=== PATIENT | female | born 1935 | race Two or more races ===

== ENCOUNTER → 2017-03-10 | Outpatient (CLI) | payer OTHER ==
--- NOTE | 2017-03-10 11:40 | CARD ---
APPROVED REPORT EXAM: Two-dimensional and M-mode echocardiogram with Doppler and color Doppler. Other Information Quality : Average Rhythm : Pacemaker INDICATION Murmur 2D DIMENSIONS RVDd2.1 (2.9-3.5cm)Left Atrium(2D)3.4 (1.6-4.0cm) IVSd1.1 (0.7-1.1cm)Aortic Root(2D)3.0 (2.0-3.7cm) LVDd4.8 (3.9-5.9cm)LVOT Diameter2.0 (1.8-2.4cm) PWd1.1 (0.7-1.1cm)LVDs3.5 (2.5-4.0cm) FS (%) 27.9 %SV57.7 ml LVEF(%)54.0 (>50%) Aortic Valve AoV Peak Coy.145.2cm/sAoV VTI27.8cm AO Peak GR.8.4mmHgLVOT Peak Coy.73.9cm/s LVOT VTI 15.49cmAO Mean GR.5mmHg ABHI (VMAX)1.07iq9IHX (VTI)1.83cm2 Mitral Valve MV E Xskfvcpw88.2cm/sMV DECEL LWIM526yc MV A Qbyjgmpu366.6cm/sMV E Mean Gr.1mmHg MV DXZ03fmR/A Ratio0.5 MV A Smmnqkcb872mbLKE (PHT)2.67cm2 TDI E/Lateral E'11.0E/Medial E'10.3 Pulmonary Valve PV Peak Vmmorbgz46.2cm/sPV Peak Grad.2mmHg RVOT VTI13.0cm Tricuspid Valve TR P. Tenlwwpo176lh/sRAP TULQALHH9yaNp TR Peak Gr.81jrSlTEYB97efEg LEFT VENTRICLE The left ventricle is normal size. There is normal left ventricular wall thickness. Left ventricle sy stolic function is normal. The Ejection Fraction is 50-55%. Abnormal septal motion consistent with pa cemaker activation. Tissue Doppler imaging reveals mild left ventricular diastolic dysfunction. Trans mitral Doppler flow pattern is Grade I-abnormal relaxation pattern. There is no ventricular septal de fect visualized. RIGHT VENTRICLE The right ventricle is normal size. The right ventricular systolic function is normal. There is a pac emaker lead seen in the right ventricle and atrium. ATRIA The left atrium size is normal. The right atrium size is normal. The interatrial septum is intact wit h no evidence for an atrial septal defect or patent foramen ovale as noted on 2-D or Doppler imaging. AORTIC VALVE The aortic valve is mildly sclerotic. The aortic valve is trileaflet. Doppler and Color Flow revealed trace aortic regurgitation. There is no significant aortic valvular stenosis. MITRAL VALVE Mitral annular calcification is mild. The mitral valve leaflets are calcified. There is no mitral camryn ve stenosis. Doppler and Color Flow revealed mild mitral regurgitation. TRICUSPID VALVE The tricuspid valve is normal in structure and function. Doppler and Color Flow revealed mild tricusp id regurgitation. The PA pressure was estimated at 23 mmHg. There is no tricuspid valve stenosis. PULMONIC VALVE The pulmonic valve is not well visualized. Doppler and Color Flow revealed mild pulmonic valvular reg urgitation. There is no pulmonic valvular stenosis. GREAT VESSELS The aortic root is normal in size. The ascending aorta is normal in size. The IVC was not visualized. PERICARDIAL EFFUSION There is no evidence of significant pericardial effusion. Critical Notification Critical Value: No <Conclusion> Left ventricle systolic function is normal. The Ejection Fraction is 50-55%. Abnormal septal motion consistent with pacemaker activation. Transmitral Doppler flow pattern is Grade I-abnormal relaxation pattern. There is a pacemaker lead seen in the right ventricle and atrium. Trace aortic regurgitation. Mild mitral regurgitation. Mild tricuspid regurgitation. The PA pressure was estimated at 23 mmHg. There is no evidence of significant pericardial effusion.
== END | disposition home or self-care (01) ==
LOC: ECHO 08:49
PROVIDERS: ATTEND Internal Medicine Cardiovascular Disease
DX: I08.1 Rheumatic disorders of both mitral and tricuspid valves (principal); R01.1 Cardiac murmur, unspecified; R06.00 Dyspnea, unspecified
CPT/HCPCS: 93306

== ENCOUNTER → 2017-04-13 | Outpatient (CLI) | payer OTHER ==
[~2017-04-13] VITALS: Ht 154.9 cm; Wt 56.2 kg
[~2017-04-13] MED LIST: BACITRACIN 50,000 UNIT in IV NORMAL SALINE 250ML 250 ML IRR ONE; DULO60CA6 PO; EPIPEN0.3 MG/0.3 IJ; GABA800T2 PO; HYDR-2758 PO; LEVO50TA5 PO; LIDOCAINE 2%/EPI 1:100,000 20 ML VIAL. IJ ONE; LIDOCAINE 2%/EPI 1:100,000 20 ML VIAL. ONE; MIDAZOLAM HCL/PF 2 MG/2 ML VIAL. IV ONE; MIDAZOLAM HCL/PF 2 MG/2 ML VIAL. ONE; NADO40TA PO; NO ANTICOAGULANT THERAPY. MC PRN; PROP20TA PO; TIZA4TAB PO; TRAM50TA PO; VANCOMYCIN 1 GM in IV DEXTROSE 5% 250 ML IV ONE; fentaNYL PF VIAL 100 MCG/2 ML VIAL IV ONE; fentaNYL PF VIAL 100 MCG/2 ML VIAL ONE
[2017-04-13 07:08] LABS: HEMATOCRIT 37.7 % (36.0-47.0); HEMOGLOBIN 12.5 g/dL (12.0-15.5); RED BLOOD COUNT 4.18 x10^6/uL (3.50-5.40); RED CELL DISTRIBUTION WIDTH 13.8 % (11.5-14.5); WHITE BLOOD COUNT 5.3 x10^3/uL (4.0-11.0)
[2017-04-13 07:20] LABS: INR 1.1 (0.8-1.1); PROTHROMBIN TIME PATIENT 13.3 SEC (11.7-14.0)
[2017-04-13 07:25] LABS: CALCIUM 9.3 mg/dL (8.5-10.1); CREATININE 0.6 mg/dL (0.6-1.0); GFR 95.7; POTASSIUM 4.3 mmol/L (3.5-5.1)
[2017-04-13 07:37] VITALS: BP 125/64
--- NOTE | 2017-04-13 08:39 | PDOC ---
MODERATE SEDATION ASSESSMENT RISKS/ALTERNATIVES Risks/Alternatives Risks and alternatives of this type of sedation and procedure discussed with: RISK/ALTERNATIVES: Patient H & P ON CHART H & P H & P on chart and reviewed for co-morbid conditions and appropriate labs. H&P ON CHART: Yes STATUS PREG STATUS ASSESSED: N/A MEDS/ALLERGIES REVIEWED Meds/Allergies Reviewed Medications and Allergies including time and route of recently administered narcotics and sedatives. MEDS/ALLERGIES REVIEWED: Yes ASA RATING ASA RATING: II AIRWAY ASSESSMENT Airway Assessment Airway patency, oral function limitations, presence of caps, crowns, dentures, partials, and ability to extend neck assessed. AIRWAY ASSESSMENT: Yes MALLAMPATI SCORE MALLAMPATI SCORE: II PRE-SEDATION ASSESSMENT PRE-SEDATION ASSESSMENT: Yes JOY MYERS MD Apr 13, 2017 08:39
[2017-04-13 08:41] VITALS: BP 111/52
[2017-04-13 09:08] VITALS: BP 117/57
--- NOTE | 2017-04-13 09:18 | CARD ---
APPROVED REPORT PROCEDURES Successful [employer] dual-chamber permanent pacemaker generator change Moderate Sedation: 22 Minutes INDICATIONS Sick sinus syndrome s/p permanent pacemaker implantation with battery depletion PROCEDURE After explaining the risks, benefits, and alternative options, informed consent was obtained from the patient. The patient was brought to the cardiac catheterization lab and the left chest and shoulder were prepp ed and draped in a sterile manner. 20 mL of 2% lidocaine was infiltrated into the skin and subcutaneous tissues for local anesthesia. An incision was made over the previous car and using blunt dissection and cautery, the pocket was opene d, capsule exposed and opened and the previously placed generator removed from the pocket. The leads were detached, interrogated and found to be functioning well and reattached to a new [employer] dual- chamber permanent pacemaker generator, model PM 2210, serial number [id number]. This was placed in the p ocket was subsequently closed in 3 layers. Hemostasis was secured. There were no immediate complicati ons. CONCLUSION Successful [employer] dual-chamber permanent pacemaker generator change for battery depletion.
[2017-04-13 09:25] VITALS: BP 137/63
[2017-04-13 09:40] VITALS: BP 121/72
== END | disposition home or self-care (01) ==
LOC: CCL 06:19
PROVIDERS: ATTEND Internal Medicine Cardiovascular Disease
DX: Z45.010 Encounter for checking and testing of cardiac pacemaker pulse generator [battery] (principal); I49.5 Sick sinus syndrome; I25.10 Atherosclerotic heart disease of native coronary artery without angina pectoris; Z87.39 Personal history of other diseases of the musculoskeletal system and connective tissue; Z86.69 Personal history of other diseases of the nervous system and sense organs; Z96.653 Presence of artificial knee joint, bilateral; Z88.1 Allergy status to other antibiotic agents; Z88.8 Allergy status to other drugs, medicaments and biological substances
CPT/HCPCS: 33213; 36415; 80048; 85027; 85610; 99152; C1785; J2250; J3010; J3370; J3490; J7050; J7030

== ENCOUNTER → 2018-07-30 | Outpatient (CLI) | payer OTHER ==
[2017-04-13 09:40] VITALS: BP 121/72
[~2018-07-30] MED LIST changes: -BACITRACIN 50,000 UNIT in IV NORMAL SALINE 250ML 250 ML IRR ONE; -GABA800T2 PO; +GABA800T5 PO; -HYDR-2758 PO; +HYDR-2761 PO; -LIDOCAINE 2%/EPI 1:100,000 20 ML VIAL. IJ ONE; -LIDOCAINE 2%/EPI 1:100,000 20 ML VIAL. ONE; -MIDAZOLAM HCL/PF 2 MG/2 ML VIAL. IV ONE; -MIDAZOLAM HCL/PF 2 MG/2 ML VIAL. ONE; -NO ANTICOAGULANT THERAPY. MC PRN; -VANCOMYCIN 1 GM in IV DEXTROSE 5% 250 ML IV ONE; -fentaNYL PF VIAL 100 MCG/2 ML VIAL IV ONE; -fentaNYL PF VIAL 100 MCG/2 ML VIAL ONE
--- NOTE | 2018-07-30 10:57 | KCIC ---
Examination: CT HEAD WO CONTRAST History: Fall, struck the head was ago. Headache. Comparison/Correlation: None Findings: Axial images of the head were obtained without contrast. Atrophy and chronic ischemic changes white matter noted. No intracranial hemorrhage, midline shift, or mass effect. Vascular calcifications involving the cavernous carotid arteries noted. No depressed fracture. Scleral calcification about the right globe anteriorly noted. Impression: Atrophy and chronic ischemic change. No suspicious process. Electronically signed by: Paras Fisher MD (07/30/2018 10:52 AM) [facility]
== END | disposition home or self-care (01) ==
LOC: KCIC CT 09:55
PROVIDERS: ATTEND Family Medicine
DX: I67.82 Cerebral ischemia (principal); G31.89 Other specified degenerative diseases of nervous system; H15.89 Other disorders of sclera
CPT/HCPCS: 70450

== ENCOUNTER → 2019-03-21 | Outpatient (CLI) | payer OTHER ==
[2017-04-13 09:40] VITALS: BP 121/72
[~2019-03-21] MED LIST changes: -TIZA4TAB PO; +TIZA4TAB2 PO
--- NOTE | 2019-03-22 00:06 | PAIN ---
DATE OF SERVICE: 03/21/2019 INITIAL CONSULTATION FOR PAIN CLINIC CHIEF COMPLAINT: Low back and bilateral lower extremity pain. HISTORY OF PRESENT ILLNESS: This is an 83-year-old female who presents with history of pain in the low back and into the bilateral lower extremities, left greater than right for many, many years. The patient reports it is getting worse. She is taking some gabapentin, which seemed to help to a moderate extent, but is not working as well as it once did. The patient reports it is worse with walking, standing, changing positions, keeps her awake from sleep at night. She has tried multiple modalities over the years including lumbar epidural steroid injections. She has had 3 lumbar surgeries with instrumentation and she had a fall with instrumentation to be removed on a third surgery. The patient reports significant pain in low back and bilateral lower extremities. She has been having increased difficulty with walking and standing because of the weakness in her legs, especially on the left side. The patient has not had any recent other treatments at this time. She has had physical therapy in the past. Trigger point injections, epidural injections since 2011, which were done in [place]. She has had chiropractic treatment over the years with no significant long lasting help. She is doing exercises and strengthening on her own currently and is walking still and again not using any assistive devices as she wants to maintain strength in her legs as best as she can. The patient reports the pain is constant, shooting, radiating, numbness and tingling into the legs. The patient reports the anterior thighs, medial thighs, lower legs as well, both anterior and posteriorly as well as some of the hips and thighs superiorly and posteriorly. The patient reports it is cramping, aching, sometimes cold sensation in the leg and often times with a tingling, paresthesia. The patient rates her disability rating from 0-10, 10 being the worst, is a 6 with family and home responsibilities, 8 with recreation, 6 with social activity, 0 in all other categories. The patient did have plain films of the lumbar spine showing postoperative changes with moderate spondylosis. A 4 mm retrolisthesis of L3 on L4, which is new along with 5 mm retrolisthesis at L2 and L3, similar to previous study, facet degenerative changes present without any acute fractures. 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 PREVIOUS SURGERY: Include bladder surgery suspension, spinal fusion with instrumentation in and out for 3 total lumbar surgeries, bilateral knee replacements and a knuckle replacement on the right hand x 2. CURRENT MEDICATIONS: Include gabapentin, levothyroxine, tramadol, propranolol, tizanidine, hydrocodone, EpiPen as needed and Cymbalta. ALLERGIES: The patient has no known drug allergies. FAMILY HISTORY: Significant for no major medical problems or conditions that she is aware of. SOCIAL HISTORY: The patient does not drink alcohol, does not smoke, does not use any illegal, illicit or recreational drugs. She is , lives locally in [place], [place] with her daughter who accompanies her to visit today. REVIEW OF SYSTEMS: The patient's review of systems is positive for those items mentioned in history of present illness. All systems reviewed and otherwise negative. It is complete, full and well documented on the patient's chart. PHYSICAL EXAMINATION: VITAL SIGNS: The patient's blood pressure 138/83, pulse 69, respiration 18, temperature 97.8 degrees Fahrenheit, height is 5 feet 1 inch, weight is 130 pounds. GENERAL: The patient is awake, alert, oriented, appropriate, very pleasant demeanor. HEENT: Head shows normocephalic, atraumatic. Extraocular movements are intact and symmetrical. Oral cavity: Mucous membranes moist and pink. Dentition is intact. NECK: Shows anterior throat supple without palpable lymphadenopathy noted. Swallow reflex symmetrical. CHEST: Shows normal on inspection. Breath sounds clear to auscultation bilaterally. HEART: Shows S1, S2 clear. No murmurs auscultated. BACK: Shows spine grossly in the midline. Slight exaggeration of thoracic kyphosis, some minor flattening of lumbar lordotic curvature. Well-healed surgical scar noted in the lumbar distribution. Lumbar paraspinous muscle shows symmetrical on inspection, on palpation shows some moderate tenderness diffusely in the upper, middle and lower distribution of paraspinous muscles, but without specific radiation. The patient shows good rotational motion of lumbar spine, both laterally as well as extension and flexion of the lumbar spine, but with some moderate tenderness with right and left lateral rotation as well as with flexion and extension. EXTREMITIES: The patient's lower extremities show deep tendon reflexes at 1+ in the patellar and tendo calcaneus tendons. Peripheral pulses are 1+ posterior tibia. No peripheral edema is noted bilaterally. Straight leg raise noted to be mildly positive bilaterally with some radicular pain at about 40-45 degrees, decreased with knee flexion. Gaenslen's and Shahram's maneuvers are grossly negative bilaterally as well. The patient is able to stand, has difficulty trying to stand on her toes as she loses balance fairly quickly, but she is walking with a slight shuffling gait and does not appear to favor the right or left lower extremity significantly for a short walk in the office today, not using any assistive devices such as canes or walkers to ambulate. SKIN: Shows warm and dry, good turgor. No edema. No sores, rashes or bruising throughout. IMPRESSION: 1. This is an 83-year-old female with a long history of low back pain, bilateral lower extremity pain, worse over the past 3 months or so. 2. Plain films of lumbar spine as noted. 3. Arthritis. 4. Peripheral neuropathy. PLAN: Options were discussed with the patient including conservative medical managements, physical therapies and interventional techniques and she would like to consider interventional techniques, although all with injection. She has had steroid injections and then fairly temporary we did discuss a spinal cord stimulator. She and her daughter both given the information regarding these and would like to consider this as a possible treatment in the future. We will have her investigate the stimulator further and if she decides, she would like to proceed with this. We will make the arrangements for a stimulator trial. TILA OCHOA MD DR: VIVIAN/armani JOB#: [id number] / [id number]
== END | disposition home or self-care (01) ==
LOC: PNCL 10:34
PROVIDERS: ATTEND Anesthesiology
DX: M54.5 Low back pain (principal); M79.662 Pain in left lower leg; M43.26 Fusion of spine, lumbar region; R20.2 Paresthesia of skin; M79.661 Pain in right lower leg; M13.88 Other specified arthritis, other site; G62.9 Polyneuropathy, unspecified; Z96.653 Presence of artificial knee joint, bilateral; Z96.698 Presence of other orthopedic joint implants
CPT/HCPCS: G0463

== ENCOUNTER → 2021-02-04 | Outpatient (CLI) | payer OTHER ==
[2017-04-13 09:40] VITALS: BP 121/72
[~2021-02-04] MED LIST changes: +ASPI-630 PO; -NADO40TA PO; +NADO40TA2 PO
--- NOTE | 2021-02-04 15:48 | PDOC1 ---
INITIAL PAIN CONSULT DATE OF SERVICE: DOS: DATE: 02/04/21 TIME: 15:40 CHIEF COMPLAINT: Chief Complaint: Neck and right upper extremity pain HISTORY OF PRESENT ILLNESS: 85-year-old female presents with history of pain base of neck and right upper extremity radiation right arm and hand for about 6 months now. Patient reports the pain began in August of this year without any specific injury or accident but has been getting worse with time and has been spreading into the right shoulder blade posteriorly as well as into the arm mostly the posterior edge of the deltoid into the triceps also in the biceps into the forearm both anterior and posterior into the hand with numbness and tingling in all of the fingers patient reports is a tingling and burning sensation in the base the neck and the right shoulder blade as well. Patient describes as radiating sharp constant shooting intermittent intensity but always present primarily at night and later in the day burning aching worse with repetitive motions reaching cleaning motions with repetitive shoulder motion as well as arm motion and with weightbearing and lifting and reaching forward. Patient has had physical therapy also chiropractic treatment in the past is doing exercises currently on her own which are not significant helping the pain in fact her therapy exercises were too comfortable for her to complete them all and is just doing some stretching exercises now. Patient taking extra Tylenol as well as hydrocodone the hydrocodone does decrease the pain Tylenol does not. Patient reports it wakes her from sleep occasionally does not affect her bowel bladder control does not affect her ability to walk does not use any assistive devices. Patient rates her disability rating 0-10 10 being the worst is an 8 with family home responsibilities and recreation 5 with self-care and life support activities. PAST MEDICAL HISTORY: PMH: Arthritis, hypertension, hearing loss, partial blindness, frequent urinary tract infections, resting tremor PREVIOUS SURGERIES: Past Surgical Hx: Bilateral wrist surgery, right eye surgery, bilateral knee surgeries, partial thyroidectomy, lumbar laminectomy x3, total abdominal hysterectomy, cataract extraction, pacemaker placement CURRENT MEDICATIONS: Current Meds: Active Scripts Medications Dose Route/Sig Max Daily Dose Days Date Category Tizanidine Hcl 4 Mg Tablet 1 Tab PO TID 04/13/17 Reported Hydrocodone-Apap 5-325 (Hydrocodone Bit/Acetaminophen) 1 Each Tablet 1 Tab PO PRN Q6HRS PRN 04/13/17 Reported Epipen (Epinephrine) 0.3 Mg/0.3 Ml Auto.injct Mg IJ 04/13/17 Reported Cymbalta (Duloxetine Hcl) 60 Mg Capsule.dr 1 Cap PO DAILY 04/13/17 Reported Propranolol Hcl 20 Mg Tablet 1 Tab PO BID 04/13/17 Reported Tramadol Hcl 50 Mg Tablet 1 Tab PO PRN Q6HRS 04/13/17 Reported Levothyroxine Sodium 50 Mcg Tablet 1 Tab PO DAILY 04/13/17 Reported Gabapentin 800 Mg Tablet 800 Mg PO BID 04/13/17 Reported ALLERGIES; Allergies: Coded Allergies: atropine (Verified Allergy, Severe, Itching, 04/13/17) Pt states she had severe itching and pain after being given Atropine for severe bradycardia cephalexin (Verified Allergy, Intermediate, 04/13/17) trazodone (Verified Allergy, Intermediate, 04/13/17) bee venom protein (honey bee) (Verified Allergy, Unknown, 04/13/17) FAMILY HISTORY: Family Hx: Arthritis SOCIAL HISTORY: Social Hx: Patient is nondrug alcohol does not smoke or use any illegal illicit recreational drugs is lives locally in [facility] and is currently retired. REVIEW OF SYSTEMS: ROS: Positive for those items mentioned in history of present illness, all systems are reviewed, otherwise negative ,and are complete full and well-documented on patient's chart. PHYSICAL EXAM: VS: Blood pressure 142/78 pulse 73 respirations 16 temperature is 98.4 F height is 61 inches weight is 127 pounds PE: PHYSICAL EXAMINATION: GENERAL: The patient is awake, alert, oriented, appropriate, very pleasant in demeanor, patient accompanied by her daughter. HEENT: Shows normocephalic, atraumatic. Extraocular movements are intact and symmetrical. Oral cavity: Mucous membranes moist and pink. NECK: Shows anterior throat supple without palpable lymphadenopathy noted. Swallow reflex symmetrical. CHEST: Shows normal on inspection. Breath sounds are clear bilaterally, distant but no rales rhonchi or wheezes auscultated. HEART: Shows S1, S2 clear. No murmurs auscultated. ABDOMEN: Soft, nontender, nondistended, obese. No palpable organomegaly is noted. BACK: Shows spine grossly in the midline. Normal-appearing cervical lordotic curvature. Cervical paraspinous muscles show symmetrical with inspection, on palpation some significant tenderness in the middle and lower distribution the paraspinous muscles on the right but not the left also into the superior medial trapezius on the right. Patient shows good rotation of motion cervical spine with significant tenderness with far right lateral rotation past 45 degrees left rotation is nontender also significant tenderness with extension and forward flexion on the right side only but without radiation. There is slightly increased thoracic kyphosis, some minor flattening of the lumbar lordotic curvature. EXTREMITIES: Upper extremities show deep tendon reflexes 2+ in the biceps and triceps tendons. Motor exam is 4 on a scale of 5 with right strength, biceps and triceps flexion and 4/5 on the left. Peripheral pulses are 2+ radial. No peripheral edema is noted bilaterally. Upper extremities are warm and dry to touch, equal in color and appearance. SKIN: Shows warm and dry, good turgor. No edema. No sores, rashes or bruising throughout. IMPRESSION: Impression: 85-year-old female with approximate 6-month history of pain base the neck right upper extremity in a radicular fashion, following a C6-7 dermatomal distribution. Failed physical therapy and patient doing stretching strength exercises currently. Osteoarthritis Hypertension Hearing loss Partial blindness Plan: Options were discussed with the patient patient daughter who accompanied her visit today. As patient has done physical therapy is also doing str engthening exercise currently and taking oral analgesics as well as hydrocodone, we discussed continued therapies as well as medication management and interventional techniques. Patient would like to pursue interventional techniques. We discussed a cervical epidural steroid injection using description as well as anatomical models to describe the procedure. Patient will wait for preauthorization with her insurance provider once approved to have her return for translaminar approach C6-7 level cervical epidural steroid injection with fluoroscopic guidance at that time. Meantime patient continue with stretching strength exercise and oral analgesics as currently. TILA OCHOA MD Feb 04, 2021 15:48
== END ==
LOC: PNCL 14:25
PROVIDERS: ATTEND Anesthesiology
DX: M79.621 Pain in right upper arm (principal); M54.2 Cervicalgia; I10 Essential (primary) hypertension; M19.90 Unspecified osteoarthritis, unspecified site; Z87.440 Personal history of urinary (tract) infections; Z79.899 Other long term (current) drug therapy; Z95.0 Presence of cardiac pacemaker; Z90.710 Acquired absence of both cervix and uterus; Z98.49 Cataract extraction status, unspecified eye; E89.0 Postprocedural hypothyroidism; Z98.890 Other specified postprocedural states
CPT/HCPCS: G0463

== ENCOUNTER → 2021-02-20 | Outpatient (CLI) | payer OTHER ==
[2017-04-13 09:40] VITALS: BP 121/72
[~2021-02-20] MED LIST changes: +IOHEXOL 180 MG/ML 10 ML VIAL. ONE; +methylPREDNISolone ACETATE 80 MG/ML VIAL. ONE
--- NOTE | 2021-02-20 14:10 | PDOC ---
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 cervical spinal stenosis History or Present Illness: HPI: 85-year-old female returns for follow-up status post evaluation and complains of pain base of the neck and right shoulder right upper extremity radiating to the right arm as previously patient reports a 9 on scale 10 is worst over the past week 8 on average 6 its least and is an 8 today patient reports is worse with repetitive motions weightbearing weight lifting reaching overhead with her right hand as well as reaching forward patient reports that sharp and burning in the neck shooting and stabbing and radiating in the right arm can be unbearable at times on and off in intensity better with sitting or laying down but is waking her from sleep about once every 3-4 hours patient reports no new motor or sensory deficits but still significant fatigability with the right hand seems to be getting more noticeable with dropping items and weakness in the right arm. Physical Exam: VS: Blood pressure is 149/64 pulse 71 respirations 16 temperature is 98.0 F weight is 128 pounds PE: PHYSICAL EXAMINATION: GENERAL: The patient is awake, alert, oriented, appropriate, very pleasant in demeanor HEENT: Shows normocephalic, atraumatic. Extraocular movements are intact and symmetrical. Oral cavity: Mucous membranes moist and pink. NECK: Shows anterior throat supple without palpable lymphadenopathy noted. Swallow reflex symmetrical. CHEST: Shows normal on inspection. Breath sounds are clear bilaterally, no rales or rhonchi. HEART: Shows S1, S2 clear. No murmurs auscultated. ABDOMEN: Soft, nontender, nondistended. No palpable organomegaly is noted. BACK: Shows spine grossly in the midline. Normal-appearing cervical lordotic curvature. Cervical paraspinous muscles show symmetrical inspection, on palpation some moderate tenderness diffusely in the inferior aspect the cervical paraspinous muscular more on the right than the left and into the superior medial trapezius as well without specific trigger points without atrophy hypertrophy. Patient has good rotation motion cervical spine both laterally greater than 45 degrees as well as full extension full forward flexion without significant difficulty. There is slightly increased thoracic kyphosis, some mi nor flattening of the lumbar lordotic curvature. EXTREMITIES: Upper extremities show deep tendon reflexes 2+ in the biceps and triceps tendons. 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 Peripheral pulses are 2+ radial. No peripheral edema is noted bilaterally. Upper extremities are warm and dry to touch, equal in color and appearance. SKIN: Shows warm and dry, good turgor. No edema. No sores, rashes or bruising throughout. Procedure: Procedure: Options were discussed with the patient. Patient chart reviews her current medication regimen updated current review of systems updated today as well. We will proceed with cervical epidural steroid injection stable fluoroscopic guidance. Risks were discussed including but not limited to: Bleeding, infection, possibility of epidural hematoma and subsequent neurological compromise, dural puncture, headaches, spinal cord and/or nerve damage, side effects of steroid medication, and poor results regarding pain control. Patient understands and wished to proceed. Patient will return to clinic in [facility] 2 weeks for follow-up, was counseled as to return appointment activity level and side effects to be aware of. Medication Injected: Med Injected: Procedure cervical epidural steroid injection at the C6-7 level, using local anesthetic under sterile prep and drape using C-arm fluoroscopic guidance under local anesthesia medications injected ;120 mg Depo-Medrol +5 mL normal saline and 2 mL contrast; condition at discharge is stable patient tolerated procedure well. and had no complications Condition at Discharge: Condition at Discharge: Condition at discharge is stable, patient tolerated the procedure well and had no complications. TILA OCHOA MD Feb 20, 2021 14:10
== END | disposition home or self-care (01) ==
LOC: PNCL 13:28
PROVIDERS: ATTEND Anesthesiology
DX: M50.10 Cervical disc disorder with radiculopathy, unspecified cervical region (principal); M48.02 Spinal stenosis, cervical region; I25.10 Atherosclerotic heart disease of native coronary artery without angina pectoris; M19.90 Unspecified osteoarthritis, unspecified site; Z79.82 Long term (current) use of aspirin; Z79.899 Other long term (current) drug therapy; Z98.890 Other specified postprocedural states; Z88.1 Allergy status to other antibiotic agents; Z88.8 Allergy status to other drugs, medicaments and biological substances
CPT/HCPCS: 62321; J1040; Q9965

== ENCOUNTER → 2021-03-07 | Outpatient (CLI) | payer OTHER ==
[2017-04-13 09:40] VITALS: BP 121/72
[~2021-03-07] MED LIST changes: -IOHEXOL 180 MG/ML 10 ML VIAL. ONE; -methylPREDNISolone ACETATE 80 MG/ML VIAL. ONE
--- NOTE | 2021-03-07 13:37 | PDOC ---
Progress Note - Pain Clinic Date of Service: DOS: DATE: 03/07/21 TIME: 13:33 Diagnosis: Dx: Cervical radiculopathy with cervical degenerative disease and cervical spinal stenosis Lumbar radiculopathy with lumbar degenerative disease lumbar postlaminectomy syndrome History or Present Illness: HPI: 85-year-old female returns for follow-up status post cervical epidural steroid injection x1. Patient reports about 75% improvement is very pleased with the improvement that she is achieved with still some pain in the base of the right side of the neck and shoulder but less radiating to the right upper extremity patient reports is a 3 on scale 10 is worst 2 on average 1 its least is a 1 today patient chief complaint however is low back and bilateral lower extremity pain pain low back radiating to the posterior gluteus posterior thighs posterior calves into the feet and ankles well with some numbness and tingling in the lower extremities bilaterally right slightly worse than left but present bilaterally patient did have some plain films of the lumbar spine showing postoperative changes with 4 mm retrolisthesis of L3 on L4 which is new along with 5 mm retrolisthesis of L2 on L3 with retrolisthesis of L2 on L3. Patient reports the pain is worse with walking standing changing positions better with sitting or laying down generally does not awaken her from sleep at night nor does her neck. Patient reports now that her neck is doing much better her low back is becoming much there is radiating shooting pain in the lower extremities bilaterally. Physical Exam: VS: Blood pressure is 138/68 pulse 61 respirations 18 temperature 98.7 F weight is 129 pounds PE: PHYSICAL EXAMINATION: GENERAL: The patient is awake, alert, oriented, appropriate, very pleasant in demeanor HEENT: Shows normocephalic, atraumatic. Extraocular movements are intact and symmetrical. Patient wearing eyeglasses. Oral cavity: Mucous membranes moist and pink. NECK: Shows anterior throat supple without palpable lymphadenopathy noted. Swallow reflex symmetrical. CHEST: Shows normal on inspection. Breath sounds are clear bilaterally. HEART: Shows S1, S2 clear. No murmurs auscultated. ABDOMEN: Soft, nontender, nondistended. No palpable organomegaly is noted. No rebound or guarding demonstrated. BACK: Shows spine grossly in the midline. Normal-appearing cervical lordotic curvature. Cervical paraspinous muscles show symmetrical with inspection, palpation some moderate tenderness diffusely in the inferior aspect the cervical paraspinous muscles on the right into the superior medial trapezius but without trigger points without atrophy or atrophy. Patient shows full rotation motion of the cervical spine without difficulty. There is increased thoracic kyphosis, some flattening of the lumbar lordotic curvature, with well-healed surgical scarring noted. Lumbar paraspinous muscles show symmetrical on inspection, on palpation shows some moderate tenderness diffusely throughout the upper, middle and lower distribution of the paraspinous muscles bilaterally, but without specific trigger points, without radiation of pain. The patient has good rotational motion of the lumbar spine, both laterally as well as extension and flexion without significant difficulty. No tenderness over the spinous processes, sacrum or sacroiliac regions. EXTREMITIES: Lower extremities show deep tendon reflexes 1+ in the patellar and tendo calcaneus tendons. Motor exam is 4 on a scale of 5 with right dorsiflexion, extension, quadriceps and hamstring flexion and 4/5 on the left. Peripheral pulses are 1+ posterior tibial. No peripheral edema is noted bilaterally. Lower extremities are warm and dry to touch, equal in color and appearance. Upper extremity show deep tendon reflexes 2+ in the bicep tricep tendons, motor exam is positive for scale 5 with floorworker lasting strength bicep and tricep flexion and symmetrical. Peripheral pulses are 2+ radial. SKIN: Shows warm and dry, good turgor. No edema. No sores, rashes or bruising throughout. Procedure: Procedure: Options were discussed with the patient. Patient chart reviews her current medication regimen updated current review of systems updated today as well. We will preauthorize patient for a lumbar epidural steroid injection as she has clinical significant and radicular pain in the L5-S1 dermatomal distribution bilaterally with numbness and tingling in the bilateral lower extremities into the feet and toes. Patient continue with stretching and strength exercises walking daily as tolerated as well as oral analgesics as currently. We will also prescribe Medrol Dosepak, patient was given instructions well side effects beware with the medication. Patient will follow up in approximately 2 weeks as scheduled we will plan on translaminar approach L5-S1 level lumbar epidural steroid injection with fluoroscopic guidance at that time. Medication Injected: Med Injected: None Condition at Discharge: Condition at Discharge: Condition at discharge is stable. TILA OCHOA MD Mar 07, 2021 13:37
== END | disposition home or self-care (01) ==
LOC: PNCL 13:11
PROVIDERS: ATTEND Anesthesiology
DX: M50.10 Cervical disc disorder with radiculopathy, unspecified cervical region (principal); M51.16 Intervertebral disc disorders with radiculopathy, lumbar region; M48.02 Spinal stenosis, cervical region; M96.1 Postlaminectomy syndrome, not elsewhere classified; I25.10 Atherosclerotic heart disease of native coronary artery without angina pectoris; M19.90 Unspecified osteoarthritis, unspecified site; Z79.82 Long term (current) use of aspirin; Z79.899 Other long term (current) drug therapy; Z98.890 Other specified postprocedural states; Z88.1 Allergy status to other antibiotic agents; Z88.2 Allergy status to sulfonamides; Z88.8 Allergy status to other drugs, medicaments and biological substances
CPT/HCPCS: 99212; G0463

== ENCOUNTER → 2021-03-21 | Outpatient (CLI) | payer OTHER ==
[2017-04-13 09:40] VITALS: BP 121/72
[~2021-03-21] MED LIST changes: -DULO60CA6 PO; +DULO60CA7 PO; +IOHEXOL 180 MG/ML 10 ML VIAL. ONE; +methylPREDNISolone ACETATE 80 MG/ML VIAL. ONE
--- NOTE | 2021-03-21 13:42 | PDOC ---
Progress Note - Pain Clinic Date of Service: DOS: DATE: 03/21/21 TIME: 13:39 Diagnosis: Dx: Cervical radiculopathy with cervical degenerative disease and cervical spinal stenosis Lumbar radiculopathy with lumbar degenerative disease and lumbar postlaminectomy syndrome History or Present Illness: HPI: 85-year-old female returns for follow-up status post cervical epidural steroid injection x1 with about 75% improvement in pain patient reports he is doing fairly well her chief complaint today is low back and bilateral lower extremity pain patient reports initially only her right leg was hurting but now both legs have 40 she fell about 4 days ago when she tripped on her feet outdoors and fell on a hard surface with pain now in both lower extremities which is new for her left greater than right patient reports is a 2 on scale 10 is worst 1 on average 0 its least until she fell now the pain is approximately a 7 to an 8 patient reports "lots of spasms" in the lower extremity specially on the left side patient reports is waking her from sleep about every 2-3 hours, reports no bowel or bladder incontinence however. Patient scribes the pain is severe burning tingling shooting stabbing dull and tight in the low back as well. Physical Exam: VS: Blood pressure is 150/68 pulse 64 respirations 18 temperature 98.1 F weight is 129 pounds PE: PHYSICAL EXAMINATION: GENERAL: The patient is awake, alert, oriented, appropriate, very pleasant in demeanor HEENT: Shows normocephalic, atraumatic. Extraocular movements are symmetrical. Oral cavity: Mucous membranes moist and pink. NECK: Shows anterior throat supple without palpable lymphadenopathy noted. Swallow reflex symmetrical. CHEST: Shows normal on inspection. Breath sounds are clear bilaterally, distant but no rales rhonchi or wheezes auscultated. HEART: Shows S1, S2 clear. No murmurs auscultated. ABDOMEN: Soft, nontender, nondistended, obese. No palpable organomegaly is noted. BACK: Shows spine grossly in the midline. Normal-appearing cervical lordotic curvature. Cervical paraspinous muscles show symmetrical with inspection, on palpation some mild tenderness in the right inferior aspect the cervical paraspinous muscle as well as into the superior medial trapezius but without trigger points or radiation. Patient shows full rotation motion cervical spine with lateral as well as extension flexion without significant difficulty. There is slightly increased thoracic kyphosis, some minor flattening of the lumbar lordotic curvature. Lumbar paraspinous muscles show symmetrical on inspection, on palpation shows some moderate tenderness diffusely throughout the upper, middle and lower distribution of the paraspinous muscles, but without specific trigger points, without radiation of pain. The patient has good rotational motion of the lumbar spine, both laterally as well as extension and flexion without significant difficulty. No tenderness over the spinous processes, sacrum or sacroiliac regions. EXTREMITIES: Lower extremities show deep tendon reflexes 1+ in the patellar and tendo calcaneus tendons. Motor exam is 4 on a scale of 5 with right dorsiflexion, extension, quadriceps and hamstring flexion and 4/5 on the left. Peripheral pulses are 1+ posterior tibial. No peripheral edema is noted bilaterally. Lower extremities are warm and dry to touch, equal in color and appearance. Upper extremity show deep tendon reflexes 2+ in the bicep tricep tendons, motor exam is strong with computer operations specialist strength bicep and tricep flexion rated at 4-5 and equal. Peripheral pulses are 2+ radial. SKIN: Shows warm and dry, good turgor. No edema. No sores, rashes or bruising throughout. Procedure: Procedure: Options were discussed with the patient. Patient chart was reviewed as her current medication regimen updated current review of systems updated today as well. We will proceed with a lumbar epidural steroid injection today with fluoroscopic guidance. Risks were discussed including but not limited to: Bleeding, infection, possibility of epidural hematoma and subsequent neurological compromise, dural puncture, headaches, spinal cord and/or nerve damage, side effects of steroid medication, and poor results regarding pain control. Patient understands and wished to proceed. Patient will return to clinic in approximately 2 weeks for follow-up, was counseled as return appointment, activity level, and side effect to be aware of. Medication Injected: Med Injected: Procedure is lumbar epidural steroid injection under local anesthetic using sterile prep and drape at the L5-S1 level using C-arm fluoroscopic guidance in both AP and lateral views medications injected is 120 mg Depo-Medrol +10mL preservative-free normal saline and 2 mL contrast- condition at discharge is stable patient tolerated procedure well had no complications. Condition at Discharge: Condition at Discharge: Condition at discharge stable, patient already the procedure well and had no complications. TILA OCHOA MD Mar 21, 2021 13:42
--- NOTE | 2021-03-21 13:43 | PDOC4 ---
Procedure Note: ICD 10 Code: ICD 10 Code: M54.17 M 48.07 M51.87 M 96.1 Procedure Note: Patient was consented for lumbar epidural steroid injection with fluoroscopic guidance. Risks were discussed including but not limited to: Bleeding, infection, possibility of epidural hematoma and subsequent neurological compromise, dural puncture, headaches, spinal cord and/or nerve damage, side effects of steroid medication, and poor results regarding pain control. Patient understands and wished to proceed. Procedure is lumbar epidural steroid injection under local anesthetic using sterile prep and drape at the L5-S1 level using C-arm fluoroscopic guidance in both AP and lateral views medications injected is 120 mg Depo-Medrol +10mL preservative-free normal saline and 2 mL contrast- condition at discharge is stable patient tolerated procedure well had no complications. TILA OCHOA MD Mar 21, 2021 13:43
== END | disposition home or self-care (01) ==
LOC: PNCL 13:05
PROVIDERS: ATTEND Anesthesiology
DX: M51.16 Intervertebral disc disorders with radiculopathy, lumbar region (principal); M50.10 Cervical disc disorder with radiculopathy, unspecified cervical region; M96.1 Postlaminectomy syndrome, not elsewhere classified; I25.10 Atherosclerotic heart disease of native coronary artery without angina pectoris; M19.90 Unspecified osteoarthritis, unspecified site; Z79.82 Long term (current) use of aspirin; Z79.899 Other long term (current) drug therapy; Z88.1 Allergy status to other antibiotic agents; Z88.2 Allergy status to sulfonamides; Z88.8 Allergy status to other drugs, medicaments and biological substances
CPT/HCPCS: 62323; J1040; Q9965

== ENCOUNTER → 2021-10-17 | Outpatient (CLI) | payer OTHER ==
[2017-04-13 09:40] VITALS: BP 121/72
[~2021-10-17] MED LIST changes: -IOHEXOL 180 MG/ML 10 ML VIAL. ONE; +TIZA-75 PO; -TIZA4TAB2 PO; -methylPREDNISolone ACETATE 80 MG/ML VIAL. ONE
--- NOTE | 2021-10-17 16:49 | CARD ---
MR#: [id number] Date of Study: 10/17/2021 Ordering Physician: MATHEW SCOTT, Referring Physician: MATHEW SCOTT, Tech: JANA BERNABE APPROVED REPORT EXAM: Two-dimensional and M-mode echocardiogram with Doppler and color Doppler. Other Information Quality : Good Rhythm : NSR INDICATION Chest Pain 2D DIMENSIONS RVDd2.5 (2.9-3.5cm)Left Atrium(2D)2.7 (1.6-4.0cm) IVSd0.8 (0.7-1.1cm)Aortic Root(2D)3.2 (2.0-3.7cm) LVDd4.6 (3.9-5.9cm)LVOT Diameter2.0 (1.8-2.4cm) PWd1.0 (0.7-1.1cm) Aortic Valve AoV Peak Coy.155.2cm/sAoV VTI25.0cm AO Peak GR.9.6mmHgLVOT Peak Coy.80.7cm/s AO Mean GR.5mmHgAVA (VMAX)1.23cm2 Mitral Valve MV E Vpygbrqh96.6cm/sMV DECEL [id number] MV A Gvoeknqv457.7cm/sMV MUJ84ht E/A Ratio0.5MVA (PHT)2.53cm2 Pulmonary Valve PV Peak Smziypxc561.8cm/sPV Peak Grad.11mmHg Tricuspid Valve TR P. Vjifgqod002kj/sRAP KPMTOXEN0qwAo TR Peak Gr.21btQfHLBG60cwFm Pulmonary Vein S1 Bcvpeyci31.4cm/sD2 Ccemejui30.5cm/s PVa haqhaxcd410cwus LEFT VENTRICLE The left ventricle is normal size. There is normal left ventricular wall thickness. The left ventricl e systolic function is normal. The Ejection Fraction is estimated at 50-55%. Abnormal septal motion c onsistent with pacemaker activation. Transmitral Doppler flow pattern is Grade I-abnormal relaxation pattern. No left ventricle thrombus noted on this study. There is no ventricular septal defect visual ized. There is no left ventricular aneurysm. There is no mass noted in the left ventricle. RIGHT VENTRICLE The right ventricle is normal size. There is normal right ventricular wall thickness. The right ventr icular systolic function is normal. ATRIA The left atrium size is normal. The right atrium size is normal. The interatrial septum is intact wit h no evidence for an atrial septal defect or patent foramen ovale as noted on 2-D or Doppler imaging. AORTIC VALVE The aortic valve is mildly thickened. No aortic regurgitation is present. There is no aortic valvular stenosis. There is no aortic valvular vegetation. MITRAL VALVE The mitral valve is normal in structure and function. There is no evidence of mitral valve prolapse. There is no mitral valve stenosis. Doppler and Color Flow revealed mild mitral regurgitation. TRICUSPID VALVE The tricuspid valve is normal in structure and function. Doppler and Color Flow revealed trace to mil d tricuspid regurgitation. There is no tricuspid valve prolapse or vegetation. There is no tricuspid valve stenosis. PULMONIC VALVE The pulmonary valve is normal in structure and function. There is no pulmonic valvular regurgitation. There is no pulmonic valvular stenosis. GREAT VESSELS The aortic root is normal in size. The ascending aorta is normal in size. The pulmonary artery is nor mal. The IVC is normal in size and collapses >50% with inspiration. PERICARDIAL EFFUSION There is no pleural effusion. There is no evidence of significant pericardial effusion. Critical Notification Critical Value: No <Conclusion> The left ventricle systolic function is normal. The Ejection Fraction is estimated at 50-55%. Abnormal septal motion consistent with pacemaker activation. Pacer wire noted RA/RV. Transmitral Doppler flow pattern is Grade I-abnormal relaxation pattern. Mild mitral regurgitation. Trace to mild tricuspid regurgitation. There is no evidence of significant pericardial effusion. Signed by : Sammy Pate, Electronically Approved : 10/17/2021 16:48:56
== END ==
LOC: ECHO 12:35
PROVIDERS: ATTEND Internal Medicine Cardiovascular Disease
DX: I08.3 Combined rheumatic disorders of mitral, aortic and tricuspid valves (principal); R06.02 Shortness of breath
CPT/HCPCS: 93306; C8929